=== PATIENT | male | born 1925 | race American Indian/Alaskan Native ===

== ENCOUNTER 2017-02-24 14:46 | Inpatient (IN) | payer MEDICARE, OTHER ==
--- NOTE | 2017-02-24 15:35 | EDM.PDOC ---
ED HPI Trauma - General Chief Complaint: Upper Extremity Injury/Pain Stated Complaint: "Right ARM HURTS" Time Seen by Provider: 02/24/17 15:00 Source: Reports: Patient, EMS, Family History Limitations: Reports: Altered mental status, Other (Forgetful) - History of Present Illness INITIAL COMMENTS - FREE TEXT/NARRATIVE: Patient lives at home with , no current PCP with [facility]ostalism in living room at home catching himself with his right arm. Pain is 6 with movement and noted on the right shoulder region at insertion of biceps tendon site. Has not taken medications at home. Pain is relieved with rest and non movement. Exacerbation of pain and discomfort with difficulty getting up from couch this afternoon. Friend indicates she thinks patient spent all evening and most of the day on the couch secondary to immobility-affirms urinary incontinence on sofa. Arrival in ambulance today @ 3:30 pm for pain in the medial right arm and shoulder. Patient accompanied with and friend- friend indicates patient lives at home with -in her opinion more forgetful than previous. Symptom Onset Date: 02/23/17 Symptom Onset Time: 12:00 Occurred When: yesterday Occurred Where: home Method of Injury: fall Severity: mild Pain/Injury Location: Reports: upper extremity, right Consciousness: Reports: no loss of consciousness, remembers incident, remembers coming to hosp Associated Symptoms: Reports: no other symptoms Past Medical History HEENT History: Reports: Hard of hearing, Impaired vision Cardiovascular History: Reports: Hypertension, Other (see below) (On Losartan 2013 but not taking-since herbal remedy) Respiratory History: Reports: None Gastrointestinal History: Reports: None Genitourinary History: Reports: Prostate disorder, Urinary incontinence Musculoskeletal History: Reports: None Neurological History: Reports: Alzheimers disease Psychiatric History: Reports: Alzheimers disease, Dementia Endocrine/Metabolic History: Reports: None Hematologic History: Reports: None Immunologic History: Reports: None Oncologic (Cancer) History: Reports: Prostate Dermatologic History: Reports: None - Infectious Disease History Infectious Disease History: Reports: None Social & Family History - Family History Family Medical History: Noncontributory Cardiac: Reports: Hypertension Respiratory: Reports: None - Tobacco Use Smoking Status *Q: Former Smoker Tobacco Use Within Last Twelve Months: No Years of Tobacco use: 70 Packs/Tins Daily: 1 Used Tobacco, but Quit: Yes - Tobacco Core Measures Tobacco Use/Smoking Within Last 30 Days: No - Caffeine Use Caffeine Use: Reports: Coffee, Tea - Alcohol Use Alcohol Use History: Yes Alcohol Use in Last Twelve Months: No - Recreational Drug Use Recreational Drug Use: No Drug Use in Last 12 Months: No - Sexual History Sexual History: Reports: None - Living Situation & Occupation Living situation: Reports: , with spouse Occupation: retired Review of Systems - Review of Systems Review Of Systems: See Below Constitutional: Reports: no symptoms Ears: Reports: no symptoms Nose: Reports: no symptoms Mouth/Throat: Reports: no symptoms Respiratory: Reports: No Symptoms Cardiovascular: Reports: no symptoms GI/Abdominal: Reports: No symptoms Genitourinary: Reports: other Musculoskeletal: Reports: shoulder pain, arm pain (Right arm and shoulder pain- secondary to catching himself from falling unknown if tripped over ottoman) Skin: Reports: no symptoms, bruising (Right medial upper arm in axillary region) Neurological: Reports: Confusion Psychiatric: Reports: confusion Trauma Exam - Physical Exam Exam: See Below Exam Limited By: Other (MMSE-with significant impairment-) General Appearance: Reports: alert, WD/WN, no apparent distress Head: Reports: atraumatic, normocephalic Eyes: bilateral eye: EOMI, normal fundi, normal inspection, PERRL, vision changes (Reading glasses) Ears: Reports: normal external exam, normal canal, hearing loss Nose: Reports: normal inspection, normal mucousa Throat/Mouth: Reports: Normal inspection, Normal lips, Normal voice, Other ( Dentures) Neck: Reports: non-tender, full range of motion, normal alignment, normal inspection Respiratory Exam: Reports: no respiratory distress, lungs clear, normal breath sounds, no accessory muscle use, chest non-tender Cardiovascular: Reports: normal peripheral pulses, regular rate, rhythm, no edema GI/Abdominal: Reports: normal bowel sounds, soft, non tender, no organomegaly (Male) Exam: Deferred Rectal (Males) Exam: Deferred Back: Reports: full range of motion Extremities: Reports: bony-point tenderness, pain with movement, tenderness, other (Right shoulder insertion of biceps tendon site. Pain exacerbated with adduction and abduction. 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 Denies: facial droop, motor weakness, sensory deficit Skin: Reports: Normal color, Warm/dry, Ecchymosis (Noted bruising right medial axillary region of the right upper extremity.) Course - Vital Signs Last Recorded V/S: Last Vital Signs Temp 37.3 C 02/24/17 15:02 Pulse 83 02/24/17 15:02 Resp 16 02/24/17 15:02 BP 151/88 H 02/24/17 15:02 Pulse Ox - Orders/Labs/Meds Orders: Active Orders 24 hr Category Date Time Status Humerus Rt [CR] Stat Exams 02/24/17 14:57 Taken Shoulder Comp Rt [CR] Stat Exams 02/24/17 14:57 Taken Departure - Departure Time of Disposition: 16:03 Disposition: Refer to Observation Clinical Impression: Sprain of shoulder, Fall from ground level Forms: ED Department Discharge MLP Sign Off - Signature Requirements MLP Sign Off: No - Problem List & Annotations (1) Right shoulder strain SNOMED Code(s): 610450967 Code(s): S46.911A - STRAIN UNSP MUSC/FASC/TEND AT SHLDR/UP ARM, RIGHT ARM, INIT Status: Acute Current Visit: Yes (2) Dementia SNOMED Code(s): 67328033 Code(s): F03.90 - UNSPECIFIED DEMENTIA WITHOUT BEHAVIORAL DISTURBANCE Status: Acute Current Visit: Yes Qualifiers: Dementia type: unspecified type Dementia behavioral disturbance: without behavioral disturbance Qualified Code(s): F03.90 - Unspecified dementia without behavioral disturbance - Assessment/Plan Admission H&P: Please use this note as an admission H&P Assessment:: Ground level fall without loss of conciousness Right Shoulder Strain Dementia Plan: Admit for observation Pain Control Physical Therapy for strengthening and assistance with ADLs
[2017-02-24] MEDS ORDERED: Sodium Chloride 0.9% 10 ML Syringe FLUSH PRN (16:09)
[2017-02-24] MEDS ORDERED: Acetaminophen/HYDROcodone 325-5 MG Tab PO PRN (16:09)
[2017-02-24] MEDS ORDERED: Ondansetron 4 MG Tab.DIS PO PRN (16:09)
[2017-02-24] MEDS ORDERED: Acetaminophen 325 MG Tab PO PRN (16:09)
[2017-02-25] MEDS ORDERED: Aspirin 81 MG Tab.EC PO PRN (09:22)
[2017-02-25] MEDS: Multivitamin Tab PO SCH (09:52)
[2017-02-25] MEDS: Enoxaparin 30 MG/0.3 ML Syringe SUBCUT SCH (09:54)
--- NOTE | 2017-02-25 10:55 | PN ---
DATE: 02/25/2017 S: This is a gentleman who came in. Apparently, he fell at home, really, does not have a lot of history. I could not obtain any from this morning, because of dementia and confusion. O: GENERAL: The patient is totally confused and really does not know where he is at, who he is. Does not know his date. NECK: Supple. CHEST: Clear. CARDIAC: Regular. ABDOMEN: Soft. EXTREMITIES: He is tender over the right shoulder from a fall. LABORATORY DATA: I will review the x-rays. ASSESSMENT: DEMENTIA, QUESTION ETIOLOGY. P: We will get appropriate lab work. I will CT his head and go from there, but I believe this gentleman probably has been in the snf. CHEO/CATHRYN /[id number]
[2017-02-26] MEDS: Multivitamin Tab PO SCH (07:53)
[2017-02-26] MEDS: Enoxaparin 30 MG/0.3 ML Syringe SUBCUT SCH (07:53)
--- NOTE | 2017-02-26 16:20 | PN ---
DATE: 02/26/2017 S: Agustín Dunn came with confusion, dementia, had fallen at home. He is still confused today. Lab work looks good. Mildly elevated D-dimer at 1.38, elevated from the fall to the shoulder. O: NECK: Supple. CHEST: Clear. CARDIAC: Regular. EXTREMITIES: Still some pain in the left shoulder, but pretty good range of motion. ASSESSMENT AND PLAN: He is a very vulnerable adult. His cannot take care of him anymore, so I talked to him at length, and he agreed to go to the [facility]. CHEO/CATHRYN /[id number]
[2017-02-27] MEDS: Enoxaparin 30 MG/0.3 ML Syringe SUBCUT SCH (07:54)
[2017-02-27] MEDS: Multivitamin Tab PO SCH (07:54)
--- NOTE | 2017-02-27 14:28 | PN ---
DATE: 02/27/2017 S: Agustín Dunn is a gentleman who came in with multiple falls, dementia, placed in the hospital in acute care on telemetry. Telemetry has been okay. Still got a lot ecchymosis in that arm, difficulty with moving it. Had a long discussion with the family yesterday, and they agreed. He has progressive dementia when admitted to the hospital. I will send him home on [place]. O: NECK: Supple. CHEST: Clear. CARDIAC: Regular. CHEO/CATHRYN /[id number]
[2017-02-27] MEDS ORDERED: Tuberculin, PPD 5 Units/0.1 ML 1 ML MDV IDERM ONE (18:40)
[2017-02-28 07:54] VITALS: BP 185/86
[2017-02-28] MEDS: Multivitamin Tab PO SCH (08:10)
[2017-02-28] MEDS: Enoxaparin 30 MG/0.3 ML Syringe SUBCUT SCH (08:10)
--- NOTE | 2017-03-06 07:06 | DISCH ---
HOSPITAL COURSE: Agustín Dunn is an elderly gentleman, who became quite confused, fell. He injured his right shoulder. He is admitted and placed on acute care and telemetry due to the fact that he has moderate severe dementia. He and his could not care. We went ahead and we will look at a skilled nursing placement. His vitals actually looked good while here in the hospital. All labs looked good. We did x-ray that shoulder showed no acute changes. Urinalysis looked good. DISPOSITION: The patient now discharged to skilled nursing. DISCHARGE DIAGNOSIS: 1. ALZHEIMER'S. 2. ATAXIA WITH INJURED RIGHT SHOULDER. CHEO/CATHRYN /[id number]
== END 2017-02-28 10:21 | DRG 57 ==
LOC: CC.ED 14:46 → CC.MS 16:09 → UNDOADMOB 16:15 → CC.MS 16:15 → OBSVTOIN 02-25 09:31
PROVIDERS: ADMIT General Practice; ATTEND General Practice
DX: G30.9 Alzheimer's disease, unspecified (principal); F02.80 Dementia in other diseases classified elsewhere, unspecified severity, without behavioral disturbance, psychotic disturbance, mood disturbance, and anxiety; S46.911A Strain of unspecified muscle, fascia and tendon at shoulder and upper arm level, right arm, initial encounter; W19.XXXA Unspecified fall, initial encounter; R27.0 Ataxia, unspecified; I10 Essential (primary) hypertension; R32 Unspecified urinary incontinence; Z87.891 Personal history of nicotine dependence; Z91.81 History of falling
CPT/HCPCS: 36415 ×2; 70450; 73030; 73060; 80053; 81001; 85027; 86140; 93005; 93010; 99220; 99285; A9270; G0378; 83880; 84439; 84443; 85379; 85610; 86580; 97110-GP; 97161-GP; J1650